=== PATIENT | female | born 1950 | race Asian ===

== ENCOUNTER 2017-10-14 14:10 | Outpatient (RCR) | payer MEDICARE, BC | END 2017-11-09 | disposition home or self-care (01) | LOC: PTY 14:10 | DX: S52.532D Colles' fracture of left radius, subsequent encounter for closed fracture with routine healing (principal); M75.51 Bursitis of right shoulder; M50.220 Other cervical disc displacement, mid-cervical region, unspecified level; S93.602D Unspecified sprain of left foot, subsequent encounter; M54.5 Low back pain | CPT/HCPCS: 97110; 97140; 97161; G0283; G8984; G8985 ==

== ENCOUNTER 2017-11-11 14:00 | Outpatient (RCR) | payer MEDICARE, BC | END 2017-12-10 | disposition home or self-care (01) | LOC: PTY 14:00 | DX: M75.51 Bursitis of right shoulder (principal); M50.220 Other cervical disc displacement, mid-cervical region, unspecified level; M47.816 Spondylosis without myelopathy or radiculopathy, lumbar region; S93.602D Unspecified sprain of left foot, subsequent encounter; M54.9 Dorsalgia, unspecified ==

== ENCOUNTER 2017-12-16 14:00 | Outpatient (RCR) | payer MEDICARE, BC | END 2018-01-10 | disposition home or self-care (01) | LOC: PTY 14:00 | DX: M75.51 Bursitis of right shoulder (principal); M50.220 Other cervical disc displacement, mid-cervical region, unspecified level; M47.816 Spondylosis without myelopathy or radiculopathy, lumbar region; S93.602D Unspecified sprain of left foot, subsequent encounter; M54.9 Dorsalgia, unspecified ==

== ENCOUNTER 2018-01-14 13:00 | Outpatient (RCR) | payer MEDICARE, BC | END 2018-02-09 | disposition home or self-care (01) | LOC: PTY 13:00 | DX: M54.2 Cervicalgia (principal); M54.5 Low back pain; M25.519 Pain in unspecified shoulder; M17.11 Unilateral primary osteoarthritis, right knee; I10 Essential (primary) hypertension; F32.9 Major depressive disorder, single episode, unspecified; Z85.9 Personal history of malignant neoplasm, unspecified ==

== ENCOUNTER 2018-02-10 13:00 | Outpatient (RCR) | payer MEDICARE, BC | END 2018-03-12 | disposition home or self-care (01) | LOC: PTY 13:00 | DX: M54.2 Cervicalgia (principal); M54.5 Low back pain; M17.11 Unilateral primary osteoarthritis, right knee; I10 Essential (primary) hypertension; F32.9 Major depressive disorder, single episode, unspecified; Z85.9 Personal history of malignant neoplasm, unspecified; M25.519 Pain in unspecified shoulder ==